=== PATIENT | female | born 1980 | race Hispanic/Latino ===

== ENCOUNTER 2017-01-03 05:46 | Emergency (ER) | payer SELFPAY ==
[2017-01-03 06:04] VITALS: BP 118/79; PULSE 61; RESP 16; O2SAT 99
--- NOTE | 2017-01-03 06:18 | ED.REPORT ---
HPI-General Illness Date of Service Jan 03, 2017 ED Provider: Jelani Parikh MD Patient is a 36-year-old woman with cholecystectomy in 2007 with persistent right upper quadrant pain that comes and goes. This episode started 4 days ago on Saturday. She describes the pain as burning and radiating to the back. The pain acutely worsened early this morning as it sometimes does. When she first gets the pain she feels like she wants to eat however if she does eat the pain worsens. Plain water or aloe vera drinks improve her symptoms. She will occasionally have nausea or vomiting but not always with this pain. She is not experiencing any headache, fever, chills, shortness of breath, constipation, diarrhea, pain or burning with urination. Nursing Notes Stated Complaint: ABDOMINAL PAIN Chief Complaint: Female Abdominal Pain Nursing Notes Reviewed: Yes Allergies: Coded Allergies: No Known Allergies (Verified , 05/11/16) Scheduled Dicyclomine (Bentyl) 10 Mg Capsule 10 MG PO QID General Time Seen by MD: 06:00 Chief Complaint Abdominal pain Hx Obtained From: Patient, Spouse Arrived By: Walk-in Sudden in Onset?: Yes Onset Occurred: 4 days ago Symptom Duration: Waxes and wanes Past Medical History Past Medical History Elevated blood glucose without formal diagnosis of diabetes Past Surgical History Cholecystectomy 2007 Reports: Cholecystectomy Family History No known family history of inflammatory bowel disease, celiac disease, or colon cancer. Smoking History Never Smoker Social History Alcohol Use: Denies alcohol use Drug Use: Denies drug use Other Social History: Occupation lives with children's father 5 in the house Ambulatory Status Independent Review of Systems A comprehensive 10 point review of systems was conducted with the patient and found to be negative except as above in the History of Present Illness. Full Review of Systems Constitutional: Denies: Fever Eyes: Denies: Diplopia Respiratory: Denies: Shortness of breath Cardiovascular: Denies: Chest pain GI: Reports: Abdominal pain Complete sys rev & neg: except as marked. Physical Exam Vital Signs Vital Signs Date Time Temp Pulse Resp B/P Pulse Ox O2 Delivery O2 Flow Rate FiO2 01/03/17 10:17 36.9 66 16 122/76 99 Room Air 01/03/17 06:04 37.2 61 16 118/79 99 Room Air Initial VS: Reviewed, Vital signs normal Head / Eyes: Atraumatic, Normocephalic, PERRL ENT: Mucous membranes moist, Conjunctiva normal, No scleral icterus Neck: Supple, Non-tender, Full range of motion Respiratory: Breath sounds normal, Clear to auscultation, No respiratory distress Cardiovascular: Regular rate & rhythm, Heart sounds normal, Intact distal pulses Back: No CVA tenderness Lymphatic: No lymphadenopathy Extremities: Vascular intact, Neuro intact, No swelling, No tenderness Skin: Warm, Dry, No cyanosis Neurologic: Alert, Oriented, Nonfocal Psychiatric: Mood/affect normal, Behavior normal, Normal thought content General/Constitutional: Awake, Alert, Well developed, Well nourished Distress / Hydration: Positive: Distress mild Abdomen: Soft, No guarding, BS normoactive Tenderness/Guarding/Rebound: Positive: Tender RLQ... (Mild), Tender RUQ... ( Mild) Interpretation & Diagnostics Outpatient abdominal ultrasound performed yesterday shows: IMPRESSION: 1. Status post cholecystectomy. 2. Echogenic liver. Finding typically represents fatty infiltration; however, finding is nonspecific and correlation with clinical and laboratory findings is recommended to exclude other etiologies including hepatic cirrhosis 3. Pancreas is not visualized due to bowel gas and cannot be evaluated. 4. Otherwise, normal abdominal sonogram. Dictated by: Maddie Powers MD, PhD on 01/02/2017 at 18:19 Lab Results Interpretation Result Diagram: 01/03/17 0640 01/03/17 0640 Test 01/03/17 06:35 01/03/17 06:40 Hold Urine Received (Received) White Blood Count 6.0th/mm3 (3.8-10.1) Red Blood Count 4.32mil/mm3 (3.90-5.20) Hemoglobin 13.1g/dL (12.0-15.6) Hematocrit 38.1% (35.0-46.0) Mean Corpuscular Volume 88.2fL (81-100) Mean Corpuscular Hemoglobin 30.3pg (27.0-35.0) Mean Corpuscular Hemoglobin Concent 34.4% (32.0-37.0) Red Cell Distribution Width 13.0% (12.3-15.4) Platelet Count 224bil/L (150-400) Neutrophils (%) (Auto) 59.8% (40-74) Lymphocytes (%) (Auto) 30.7% (14-46) Monocytes (%) (Auto) 6.3% (4-12) Eosinophils (%) (Auto) 2.7% (0-5) Basophils (%) (Auto) 0.3% (0-3) Sodium Level 138mEq/L (134-144) Potassium Level 3.5mEq/L (3.5-5.2) Chloride Level 106mEq/L (97-108) Carbon Dioxide Level 20mmol/L (18-29) Blood Urea Nitrogen 9mg/dL (6-20) Creatinine 0.50mg/dL (0.57-1.00) Estimat Glomerular Filtration Rate 201mL/min (>59) Glucose Level 110mg/dL (60-99) Lactic Acid Level 0.7mmol/L (0.4-2.0) Calcium Level 9.0mg/dL (8.5-10.1) Magnesium Level 2.0mg/dL (1.6-2.6) Total Bilirubin 0.3mg/dL (0.0-1.2) Aspartate Amino Transf (AST/SGOT) 17U/L (0-50) Alanine Aminotransferase (ALT/SGPT) 13U/L (0-32) Alkaline Phosphatase 71U/L (25-150) Total Protein 6.8g/dL (6.4-8.4) Albumin 3.9g/dL (3.4-5.0) Lipase 63U/L (13-60) Urinalysis Interpretation Urinalys reviewed and NL Re-Eval/Medical Decision Med Decision/Clinical Course Patient is a 36-year-old woman with cholecystectomy in June 2007) chronic right upper quadrant pain that comes and goes. Her current episode has been ongoing for 4 days, she had acute worsening of her pain this morning. Ultrasound performed as an outpatient yesterday shows nondilated intra-and extrahepatic bile ducts, surgically absent gallbladder, probable fatty infiltration of liver, pancreas was not visualized due to being obscured by bowel gas. Imaging of normal bile ducts yesterday makes choledocholithiasis less likely. Chronicity and negative urine test make ectopic unlikely. She has no blood in her urine and no sign of infection me and nephrolithiasis or pyelonephritis and unlikely cause of her symptoms. Given this, reasonable to discharge home with very careful return precautions, follow-up tomorrow. Patient agreeable to the plan as stated, no further questions. Counseled Regarding: Diagnosis, Lab results, Need for follow-up, When/why to return to ED Discharge & Departure Primary Impression: RUQ abdominal pain Disposition: Home Discharge Condition All VS Reviewed: Yes Condition: Stable Patient Instructions: Acute Abdominal Pain (ED), Gastritis (ED) Additional Instructions: Thank you for entrusting us with your care today. You are not currently showing signs of infection, or organ failure. Please call to schedule an appointment with your primary care provider for tomorrow to see how your symptoms are going. I will give you a medication that will help with cramping pain. Bentyl You will likely benefit from an acid suppression medication. I will let your primary care provider help you find one that works for you. If symptoms worsen, you develop a fever, Or are unable to hold fluids down please return to the emergency department. Denny por confiarnos swain cuidado hoy. Usted no est mostrando signos de infeccin, o fracaso de rganos. Llame para programar unique yudith con swain proveedor de atencin primaria para maana para bessie pony trimmer van nhi sntomas. Le alecia un medicamento que le ayudar con el dolor de calambres. Bentyl Es probable que se beneficie de unique medicacin de supresin de cido. Dejar que swain proveedor de atencin primaria le ayude a encontrar elizabeth que funcione para usted. Si los sntomas empeoran, usted desarrolla fiebre, o es incapaz de contener l quidos por favor regrese al departamento de emergencia. Referrals: [facility] (PCP) [facility] (Family) Attending Statement I saw, examined, and evaluated the patient independently of the resident. I agree with the plan and findings as documented above. Lactate 0.7, CBC grossly wnl. CMP grossly wnl. Lipase only mildly elevated at 63 w/ normal LFTs. copies to: [facility] William B MD Jan 03, 2017 06:18 Stephany Mitchell DO Jan 03, 2017 06:40
[2017-01-03] MEDS ORDERED: LidocaineVisc 2%:Antacid 1:1 10 mL Syringe PO ONE (06:30)
[2017-01-03] MEDS ORDERED: Donnatal-Lido-Mylant 1:1:1 15 mL Syringe PO ONE (06:30)
[2017-01-03] MEDS ORDERED: Ketorolac 15 mg/mL Inj IVPUSH ONE (06:45)
[2017-01-03 06:57] LABS: BASOPHILS % (AUTO) 0.3 % (0-3); EOSINOPHILS % (AUTO) 2.7 % (0-5); MONOCYTES % (AUTO) 6.3 % (4-12); Mean Corpuscular Hemoglobin 30.3 pg (27.0-35.0); Mean Corpuscular Volume 88.2 fL (81-100); NEUTROPHILS % (AUTO) 59.8 % (40-74); Platelet Count 224 bil/L (150-400)
[2017-01-03] MEDS ORDERED: 0.9% Sodium Chloride 1,000 ML IV ONE (08:40)
--- NOTE | 2017-01-03 09:10 | DRSVH ---
PROCEDURE: CT ABDOMEN AND PELVIS WITH CONTRAST ([id number]) INDICATIONS: 36 year-old female with right upper quadrant abdominal pain. TECHNIQUE: After the administration of intravenous contrast, 5 mm thick sections acquired from the diaphragm to the symphysis. 5 mm coronal and sagittal reformats were acquired. For radiation dose reduction, the following was used: automated exposure control, adjustment of mA and/or kV according to patient wilber powell COMPARISON: [facility], [place], US ABDOMEN, 01/02/2017, 17:33. FINDINGS: Image quality: Excellent. ABDOMEN: Lung bases: Lung bases are clear. Heart size is normal. Solid organs: Liver and spleen are normal in size and enhancement. Gallbladder is surgically absent . Biliary system is non dilated. Pancreas enhances normally. No adrenal nodules. Kidneys demonstr ate normal size and enhancement, without hydronephrosis. Peritoneum and bowel: Bowel loops demonstrate normal wall thickness and caliber. The appendix appea rs normal. There is mild sigmoid colon diverticulosis. No free fluid or air. Nodes and vessels: No retroperitoneal or mesenteric adenopathy by size criteria. Aorta and inferior vena cava are normal in size. Miscellaneous: No ventral hernias. PELVIS: Genitourinary: Bladder wall thickness is normal. Uterus and ovaries are normal in size. 1.2 cm kia pherally calcified lesion lies adjacent to the left ovary. Miscellaneous: No inguinal hernias or adenopathy. Bones: No suspicious bony lesions. No vertebral body compression fractures. Anterior right femoral head bone island is incidentally noted. IMPRESSION: 1. No imaging explanation for right upper quadrant abdominal pain, status post cholecystectomy. 2. Mild sigmoid colon diverticulosis. 3. 1.2 cm peripherally calcified lesion just posterior to the left ovary may represent sequelae of re mote left paraovarian cyst hemorrhage or infection, and is of doubtful clinical significance. Dictated by: Tyson Son M.D. on 01/03/2017 at 9:00 Approved by: Tyson Son M.D. on 01/03/2017 at 9:09
[2017-01-03] MEDS ORDERED: DICY10CA56 PO (10:05)
[2017-01-03 10:17] VITALS: BP 122/76; PULSE 66; RESP 16; O2SAT 99
== END 2017-01-03 10:18 | disposition home or self-care (01) ==
LOC: SED 05:46
DX: R10.11 Right upper quadrant pain (principal); Z90.49 Acquired absence of other specified parts of digestive tract
CPT/HCPCS: 36415; 74177; 80053; 81025; 83605; 83690; 83735; 85025; 96361; 96374; 99285; J1885; J7030; Q9967